=== PATIENT | male | born 1935 | race Caucasian/White ===

== ENCOUNTER → 2017-02-18 | Outpatient (CLI) | payer OTHER | LOC: FIMAGING 08:37 | PROVIDERS: ATTEND Family Medicine | DX: Z12.11 Encounter for screening for malignant neoplasm of colon (principal); K57.30 Diverticulosis of large intestine without perforation or abscess without bleeding ==

== ENCOUNTER 2017-06-25 08:46 | Day surgery (SDC) | payer OTHER ==
[2017-06-25] MEDS ORDERED: LIDOCAINE 1% 2 ML INJ ID PRN (10:01)
[2017-06-25] MEDS ORDERED: LR 1,000 ML IV ONE (10:01)
[2017-06-25 10:44] VITALS: PULSE 66
--- NOTE | 2017-06-25 11:43 | PDANEPAE ---
ANE History of Present Illness 82 yo for colonoscopy ANE Past Medical History - Cardiovascular History Hx Hypertension: No Hx Arrhythmias: No Hx Chest Pain: No Hx Coronary Artery / Peripheral Vascular Disease: No Hx CHF / Valvular Disease: No Hx Palpitations: No - Pulmonary History Hx COPD: No Hx Asthma/Reactive Airway Disease: No Hx Recent Upper Respiratory Infection: No Hx Oxygen in Use at Home: No Hx Sleep Apnea: No Sleep Apnea Screening Result - Last Documented: Negative - Neurologic History Hx Cerebrovascular Accident: No Hx Seizures: No Hx Dementia: No Neurologic History Comment: peripheral neuropathy- no medications - Endocrine History Hx Diabetes: No - Renal History Hx Renal Disorders: No - Liver History Hx Hepatic Disorders: No - Neurological & Psychiatric Hx Hx Neurological and Psychiatric Disorders: No - Cancer History Hx Cancer: No - Congenital Disorder History Hx Congenital Disorders: No - GI History Hx Gastrointestinal Disorders: No - Other Health History Other Health History: wears glasses. full set of dentures. macular degeneration - Chronic Pain History Chronic Pain: No - Surgical History Prior Surgeries: appy at 11 yo. early 50's bone spur removed from ankle ANE Review of Systems Review of Systems: - Exercise capacity METS (RN): 4 METS ANE Patient History - Allergies Allergies/Adverse Reactions: No Known Allergies Allergy (Verified 06/12/17 15:54) - Home Medications Home medications: home medication list seen and reviewed Home Medications: Herbals/Supplements -Info Only 06/12/17 [Last Taken 06/18/17] - NPO status NPO Status: no food or drink >8 hours NPO Since - Liquids (Date): 06/25/17 NPO Since - Liquids (Time): 01:00 NPO Since - Solids (Date): 06/24/17 NPO Since - Solids (Time): 08:30 - Anes Hx Anes Hx: no prior problems - Smoking Hx Smoking Status: Current some day smoker - Family Anes Hx Family Hx Anesthesia Complications: none ANE Labs/Vital Signs - Vital Signs Blood Pressure: 146/79 Heart Rate: 66 Respiratory Rate: 16 O2 Sat (%): 94 Height: 5 ft 11 in Weight: 83.915 kg ANE Physical Exam - Airway Neck exam: FROM Mallampati Score: Class 1 Mouth exam: normal dental/mouth exam - Pulmonary Pulmonary: no respiratory distress - Cardiovascular Cardiovascular: regular rate and rhythym - ASA Status ASA Status: II ANE Anesthesia Plan Anesthesia Plan: GA with mask
[2017-06-25] MEDS ORDERED: PROPOFOL/EMULSION 500 MG/50 ML BOTTLE IV ONE (12:15)
--- NOTE | 2017-06-25 12:18 | PDGENHP ---
History & Physical Chief Complaint: phx polyps abnml ct scan History of Present Illness: abnl virtaul colon Pertinent Past, Social, Family History: fhx - unknown, adopted. shx - no tobacco x decades, no alcohol. phx polyps Relevant Physical Exam: a+ox3. CTA. S1S2. +BS, soft nt Cardiorespiratory Assessment: class 1
[2017-06-25] MEDS ORDERED: NALOXONE HCL 0.4 MG/ML INJ IVP PRN (12:38)
--- NOTE | 2017-06-25 12:57 | POSTOPPROG ---
Post Op Note Date of Operation: 06/25/17 Surgeon: Javier Yadav Anesthesiologist: Patricia Anesthesia: Other (Specify) (IV general) Pre-op Diagnosis: abnml ct, phx polyps Post-op Diagnosis: transevers polyps, small sigmoid polyp, tics Indication: abnl virtual colonoscopy Procedure: colon and snare and bx Findings: 2 transverse polys removed with snare, small sigmoid polyp bx, tics Inf/Abcess present in the surg proc area at time of surgery?: No EBL: Minimal (few ml) Total fluids administered: 800 ml LR Complications: none immediate
--- NOTE | 2017-06-25 12:58 | GIREPORT ---
[facility] Surgical [facility] - Endoscopy Department Patient Name: Mikie Yanes Procedure Date: 06/25/2017 12:23 PM Patient Type: Outpatient Attending MD/ ER Physician: Philippe Russo Procedure: Colonoscopy Indications: Follow-up for history of adenomatous polyps in the colon, Abnormal virt ual colonoscopy Providers: Jose Yadav MD Referring MD: Dr. Paredes Medicines: Total IV Anesthesia (TIVA) = IV general Complications: No immediate complications. Description of Procedure: After obtaining informed consent, the scope was passed under direct vis ion. Throughout the procedure, the patient's blood pressure, pulse, and oxyg en saturations were monitored continuously. The Colonoscope with irrigatio n channel was introduced through the anus and advanced to the terminal il eum, with identification of the appendiceal orifice and IC valve. The colono scopy was performed without difficulty. The patient tolerated the procedure w ell. The quality of the bowel preparation was good. Findings: The digital rectal exam was normal. The terminal ileum appeared normal. Two semi-sessile polyps were found in the transverse colon. The polyps were 4 to 7 mm in size. These polyps were removed with a cold snare. Resecti on and retrieval were complete. Estimated blood loss was minimal. A 2 mm polyp was found in the sigmoid colon. The polyp was sessile. The polyp was removed with a cold biopsy forceps. Resection and retrieval w ere complete. Estimated blood loss was minimal. Multiple small and large-mouthed diverticula were found in the sigmoid colon, descending colon and transverse colon. The exam was otherwise without abnormality. Estimated Blood Loss: Estimated blood loss was minimal. Post Op Diagnosis: - The examined portion of the ileum was normal. - Two 4 to 7 mm polyps in the transverse colon, removed with a cold sna re. Resected and retrieved. - One 2 mm polyp in the sigmoid colon, removed with a cold biopsy force ps. Resected and retrieved. - No polyp seen in left colon to correlate with CT findings. Thus CT sc an must have seen a stool ball in that area and not a polyp - Diverticulosis in the sigmoid colon, in the descending colon and in t he transverse colon. - The examination was otherwise normal. Recommendation: - Await pathology results. - My office will call with the pathology result with 5-7 days. If you h ave not heard from my office by 14, do not assume the pathology is tammi l, please call [phone] to get the pathology results. - High fiber diet indefinitely. - 30-35 grams of dietary fiber per day. Can use supplemental fiber. - A high fiber diet may decrease risk of complications from diverticulo sis. There is no need to avoid seeds or nuts. - Patient has a contact number available for emergencies. The signs and symptoms of potential delayed complications were discussed with the pat ient. Return to normal activities tomorrow. Written discharge instructions we re provided to the patient. - Continue present medications. - Avoid Aspirin and NSAID's for 7-10 days except as used for cardiac or stroke prevention. - Discharge patient to home (ambulatory). - Return to primary care physician as previously scheduled. - Thank you for allowing me to help in your patient's care. Do not hesi ramirez to call with any questions. Attending Participation: I personally performed the entire procedure. Leif Garcia M.D Jose Yadav MD 06/25/2017 12:57:52 PM This report has been signed electronicallyMathew MD Leif Number of Addenda: 0 Note Initiated On: 06/25/2017 12:23 PM Total Procedure Duration Time 0 hours 21 minutes 5 seconds [email or web address]
--- NOTE | 2017-06-25 13:05 | POSTANESTH ---
Post Anesthetic Evaluation Cardiovascular Status: Normal, Stable Respiratory Status: Normal, Stable Level of Consciousness/Mental Status: Can Participate in Eval Pain Control: Adequate, Prn Tx Ordered Nausea/Vomiting Control: Adequate, Prn Tx Ordered Complications Possibly Related to Anesthesia: None Noted
[2017-06-25 14:13] VITALS: BP 138/75; RESP 16; O2SAT 96
[2017-06-25 14:15] VITALS: TEMP 97.7
== END 2017-06-25 14:20 | disposition home or self-care (01) ==
LOC: FSGY 08:46
PROVIDERS: ATTEND Internal Medicine Gastroenterology
DX: D12.3 Benign neoplasm of transverse colon (principal); K57.30 Diverticulosis of large intestine without perforation or abscess without bleeding; Z86.010 Personal history of colon polyps
CPT/HCPCS: J2704